=== PATIENT | male | born 2000 | race Caucasian/White ===

== ENCOUNTER 2023-06-26 12:47 | Inpatient (IN) | payer OTHER ==
[~2023-06-26] VITALS: Ht 167.6 cm; Wt 88.1 kg
--- NOTE | 2023-06-26 13:30 | NUR ---
PATIENT ARIVED IN STABLE CODITION FROM [facility]. PER EMS PATIENTS MOTHER COMING SOON. PATIENT IS AWAKE AND ALERT, VITAL SIGNS STABLE. PATIENT DENIES ANY PAIN OR NAUSEA AT THIS TIME. PATIENT WEIGHT TAKEN ON THE BED. WILL ASK HIS MOTHER WHEN SHE ARRIVES WHAT PATIENTS WEIGHT IS. CALL LIGHT MARIOLA BRAVO. PATIENT ORIENTED TO ROOM.
[2023-06-26 14:00] VITALS: BP 118/82; PULSE 78
[2023-06-26 16:34] LABS: BASO # 0.1 K/mm3 (0.0-0.2); BASO % 0.5 % (0.0-2.0); EOS # 0.1 K/mm3 (0.0-0.7); EOS % 0.8 % (0.0-4.0); GRAN # 6.5 K/mm3 (1.4-6.5); HEMATOCRIT 42.4 % (42.0-52.0); HEMOGLOBIN 14.3 g/dl (13.5-18.0); LYMPH # 3.2 K/mm3 (1.2-3.4); LYMPH % 30.3 % (20.0-51.0); MEAN CELL VOLUME 88 fl (80.0-100.0); MEAN CORPUSCULAR HEMOGLOBIN 30 pg (27-31); MEAN CORPUSCULAR HGB CONC 34 g/dl (33.0-37.0); MEAN PLATELET VOLUME 8.6 fl (7.4-10.4); MONO # 0.8 K/mm3 (0.1-0.6); MONO % 7.1 % (1.7-9.3); PLATELET COUNT 334 K/mm3 (130-400); RED BLOOD COUNT 4.83 M/mm3 (4.20-5.60); REDCELL DISTRIBUTION WIDTH-CV 13.4 % (11.5-14.5)
[2023-06-26 16:42] LABS: INR 1.2 (0.8-3.0); PROTHROMBIN TIME 12.8 SECONDS (9.7-12.8)
[2023-06-26 16:51] LABS: ALBUMIN 4.3 gm/dL (3.5-5.0); BILIRUBIN,TOTAL 0.6 mg/dL (0.2-1.2); CALCIUM 9.8 mg/dL (8.4-10.2); CREATININE, serum 0.91 mg/dL (0.72-1.25); POTASSIUM 3.6 mmol/L (3.5-4.5)
--- NOTE | 2023-06-26 17:00 | NUR ---
PATIENT DOWN IN SURGERY
--- NOTE | 2023-06-26 18:37 | NUR ---
PER DR HERRERA MAKE PATIENT NPO FOR SX AROIND NOON TOMORROW
[2023-06-26] MEDS ORDERED: CARNITOR100 MG/M1 PO (19:36)
[2023-06-26] MEDS ORDERED: SYNTHROID0.112 MG/T PO (19:36)
--- NOTE | 2023-06-26 19:44 | NUR ---
ATTEMPT TO CONTACT NIGHT BULK RECEIVER [facility] REGARDING RESUMING HOME MED CARNITINE SUPLEMENT. THIS RN SPOKE TO PHARMACIST DAISY VILLA STATE HE WILL TRY TO CONTACT NIGHT BULK RECEIVER.
[2023-06-26 20:00] VITALS: BP 119/67; PULSE 72; TEMP 97.8
--- NOTE | 2023-06-26 22:23 | NUR ---
PATIENT RETURNED FROM OR/PACU AT 1914 ACCOMPANIED BY REEL REPAIRER, BASHIR. PATIENT ALERT AND ORIENTED WITH FAMILY AT BEDSIDE. PATIENT HAS NO COMPLAINTS OF PAIN AT THIS TIME. VITAL SIGNS WNL. MEDICATIONS ADMINISTERED PER EMAR. CALL LIGHT WITHIN REACH.
--- NOTE | 2023-06-26 22:27 | NUR ---
RECEIVED REPORT FROM RADHA CHANEY RN AND PACU, RNBASHIR. PATIENT ALERT WITH FAMILY AT BEDSIDE. PATIENT HAS NO COMPLAINTS OF PAIN OR CONCERNS AT THIS TIME. CALL LIGHT WITHIN REACH.
[2023-06-27] VITALS (10 sets, daily range): BP systolic 121–128; BP diastolic 64–80; PULSE 75–82; TEMP 97.6–98.6
[2023-06-27 03:32] LABS: SQUAMOUS EPITHELIAL None Seen /hpf (0-10); URINE BACTERIA Rare /hpf (NONE SEEN); URINE RBC >50 /hpf (0-2)
[2023-06-27 03:34] LABS: COLLECTION METHOD CLEAN CATCH; URINE APPEARANCE Cloudy (CLEAR/HAZY); URINE COLOR Red (YELLOW)
[2023-06-27 03:35] LABS: URINE BLOOD 3+ (NEGATIVE); URINE GLUCOSE Negative (NEGATIVE); URINE KETONE 1+ (NEGATIVE); URINE NITRATE Positive (NEGATIVE); URINE PROTEIN(semi-quant) 3+ (NEGATIVE)
[2023-06-27 06:33] LABS: BASO % 0.2 % (0.0-2.0); GRAN % 85.1 % (42.2-75.2); HEMATOCRIT 39.6 % (42.0-52.0); HEMOGLOBIN 13.4 g/dl (13.5-18.0); LYMPH # 1.2 K/mm3 (1.2-3.4); MEAN CELL VOLUME 88 fl (80.0-100.0); MEAN CORPUSCULAR HEMOGLOBIN 30 pg (27-31); MEAN CORPUSCULAR HGB CONC 34 g/dl (33.0-37.0); MEAN PLATELET VOLUME 9.3 fl (7.4-10.4); MONO # 0.4 K/mm3 (0.1-0.6); MONO % 3.4 % (1.7-9.3); PLATELET COUNT 332 K/mm3 (130-400); RED BLOOD COUNT 4.49 M/mm3 (4.20-5.60); REDCELL DISTRIBUTION WIDTH-CV 13.2 % (11.5-14.5)
[2023-06-27 07:08] LABS: ALBUMIN 3.7 gm/dL (3.5-5.0); BILIRUBIN,TOTAL 0.4 mg/dL (0.2-1.2); CALCIUM 9.3 mg/dL (8.4-10.2); CREATININE, serum 0.82 mg/dL (0.72-1.25); POTASSIUM 3.3 mmol/L (3.5-4.5); TOTAL PROTEIN 6.4 gm/dL (6.2-8.1)
--- NOTE | 2023-06-27 10:00 | NUR ---
PT AWAKE IN BED UPON ENTERING, MOM AT BEDSIDE. PT A&OX4 WITH MOM ANSWERING MAJORITY QUESTIONS DURING ASSESSMENT. UROLOGY PROCEDURE DONE 06/26 WITH STENTS PLACED, ATTATCHED THREAD NOTED DURING ASSESSMENT. HEMATURNIA NOTED IN URINAL, PT CONCERNED AND THIS NURSE REASSURED PT THAT HEMATURIA IS EXPECTED AFTER CYSTO AND BIOPSIES TAKEN. PT STARTED ON POTASSIUM PROTOCOL, FLUIDS RUNNING PER ORDER AND DENIES PAIN OR NEEDS AT THIS TIME. BED IN LOWEST POSITION, CALL LIGHT IN REACH.
--- NOTE | 2023-06-27 12:08 | NUR ---
Initial visit: call or contact centre team leader stopped by room on rounds. Pt was resting and content. Pt has no needs right now. Material Worker will follow up as needed.
[2023-06-27] MEDS ORDERED: CYANOCOBAL1000 MCG/1 IM (13:37)
[2023-06-27] MEDS ORDERED: IMODIUM 2MG CAPS2 MG PO (13:38)
[2023-06-27] MEDS ORDERED: MASON NATURAL2000 IU PO (13:38)
[2023-06-27] MEDS ORDERED: NATURE'S BLEND100 M2 PO (13:39)
--- NOTE | 2023-06-27 15:39 | NUR ---
Personnel Counselor met with patient to discuss discharge planning. Patient lives in [place] with his parents, Michelle and Christopher. Patient sees Dr. Araiza for primary care and obtains medications from [facility] or [facility]. Specifically, patient advised he obtains his thyroid medication from [facility]. Patient advised he was a walker for when he needs it but is normally independent with ADLS. Patient plans to return home at time of discharge. SW contacted patient's mother, Michelle to follow up. Michelle advised she and her , Christopher are patient's Guardians and that she has paperwork with her. Patient also follows at [facility] as well as [facility]. Michelle confirmed that patient is normally independent with ADLS but when he has an "episode" he tends to needs to use a walker and require PT. Discharge Plan: Home
[2023-06-28] VITALS (13 sets, daily range): BP systolic 117–140; BP diastolic 67–78; PULSE 63–83; TEMP 97.9–98.9
--- NOTE | 2023-06-28 05:44 | NUR ---
06/27 2000 BLACK THREAD FROM STENT VISIBLE AND INTACT, PT. DENIES ANY PAIN AT THIS TIME, SAYS HE FEELS LIKE IT'S BEEN A LITTLE DIFFICULT FOR HIM TO URINATE AFTER THE PROCEDURE, AND THAT HE HAS HAD SOME BLOOD IN HIS URINE, I REASSURED HIM THAT A LITTLE BLOOD IS NOT UNUSAL AFTER THE PROCEDURE HE HAD, BUT TO LET US KNOW IF HE PASSED ANY BLOOD CLOTS OR HAD A LOT MORE BLOOD COME OUT THAN HE IS CURRENTLY PASSING, PT. STATED UNDERSTANDING, WILL CONTINUE TO MONITOR.
[2023-06-28 07:08] LABS: BASO # 0.1 K/mm3 (0.0-0.2); BASO % 0.5 % (0.0-2.0); EOS # 0.1 K/mm3 (0.0-0.7); EOS % 1.3 % (0.0-4.0); GRAN # 5.6 K/mm3 (1.4-6.5); GRAN % 51.1 % (42.2-75.2); HEMOGLOBIN 13.2 g/dl (13.5-18.0); LYMPH # 4.2 K/mm3 (1.2-3.4); LYMPH % 38.4 % (20.0-51.0); MEAN CELL VOLUME 89 fl (80.0-100.0); MEAN CORPUSCULAR HEMOGLOBIN 30 pg (27-31); MEAN CORPUSCULAR HGB CONC 34 g/dl (33.0-37.0); MEAN PLATELET VOLUME 9.2 fl (7.4-10.4); MONO # 0.9 K/mm3 (0.1-0.6); MONO % 8.4 % (1.7-9.3); PLATELET COUNT 347 K/mm3 (130-400); RED BLOOD COUNT 4.39 M/mm3 (4.20-5.60); REDCELL DISTRIBUTION WIDTH-CV 13.4 % (11.5-14.5)
[2023-06-28 07:14] LABS: CALCIUM 9.1 mg/dL (8.4-10.2); CREATININE, serum 0.83 mg/dL (0.72-1.25); POTASSIUM 3.3 mmol/L (3.5-4.5)
--- NOTE | 2023-06-28 08:50 | NUR ---
PT CALLED AND TRANSFERRED TO CHAIR. FLUIDS RUNNING PER ORDER. PT DENIES PAIN OR HAS ANY COMPLAINTS AT THIS TIME. STENT THREAD IN PLACE AND HEMATURIA IMPROVING. POTASSIUM PROTOCOL STARTED. CALL LIGHT IN REACH
[2023-06-28 08:54] LABS: MAGNESIUM 1.6 mg/dL (1.6-2.6); PHOSPHOROUS 4.2 mg/dL (2.3-4.7)
[2023-06-29] VITALS (10 sets, daily range): BP systolic 116–129; BP diastolic 68–87; PULSE 42–113; TEMP 97.8–98.7
--- NOTE | 2023-06-29 05:30 | NUR ---
ASSESSMENT COMPLETE FOR FIELD CONTACT TECHNICIAN. PT HAD SOME LOW HEART RATES WHICH WERE DOWN TO THE MID 30'S. ASYMPTOMATIC. VSS. HOSPITALIST NOTIFIED. WILL CONTINUE TO MONITOR. PT DENIED GENERAL PAIN, CHEEST PAIN, PALPITATIONS, SOB, N,V,D OR DIZZINESS. FALL PRECAUTIONS IN PLACE. BED ALARM ON. CALL LIGHT WITHIN REACH.
[2023-06-29 06:52] LABS: BASO # 0.1 K/mm3 (0.0-0.2); BASO % 0.8 % (0.0-2.0); EOS # 0.5 K/mm3 (0.0-0.7); GRAN # 4.7 K/mm3 (1.4-6.5); GRAN % 51.2 % (42.2-75.2); HEMATOCRIT 38.6 % (42.0-52.0); HEMOGLOBIN 13.3 g/dl (13.5-18.0); LYMPH # 3.1 K/mm3 (1.2-3.4); LYMPH % 34.2 % (20.0-51.0); MEAN CELL VOLUME 88 fl (80.0-100.0); MEAN CORPUSCULAR HEMOGLOBIN 30 pg (27-31); MEAN CORPUSCULAR HGB CONC 35 g/dl (33.0-37.0); MEAN PLATELET VOLUME 8.9 fl (7.4-10.4); MONO # 0.8 K/mm3 (0.1-0.6); MONO % 8.6 % (1.7-9.3); PLATELET COUNT 343 K/mm3 (130-400); REDCELL DISTRIBUTION WIDTH-CV 13.7 % (11.5-14.5)
[2023-06-29 07:09] LABS: CALCIUM 9.3 mg/dL (8.4-10.2); CREATININE, serum 0.77 mg/dL (0.72-1.25); POTASSIUM 3.4 mmol/L (3.5-4.5)
[2023-06-29 16:45] LABS: ALANINE AMINOTRANSFERASE 114 U/L (0-55); AST,SGOT 99 U/L (5-34); CREATINE KINASE 3878 U/L (30-200)
[2023-06-30] VITALS (7 sets, daily range): BP systolic 110–141; BP diastolic 53–67; PULSE 57–71; TEMP 97.6–98.4
--- NOTE | 2023-06-30 07:00 | NUR ---
PT RESTING SITTING UP IN THE CHAIR WAITING FOR BREAKFAST. PT IS AXOX3. PT HAS CALL LIGHT AND INSTRUCTED TO CALL WITH ALL NEEDS. 0900 PT HAS RASH FROM TELEMETRY PATCHES. TELE REMOVED FOR SHOWER. ASKED REGARDING AND STATES WE CAN DC TELE.
[2023-06-30 08:37] LABS: CALCIUM 9.7 mg/dL (8.4-10.2); CREATININE, serum 0.78 mg/dL (0.72-1.25); POTASSIUM 3.6 mmol/L (3.5-4.5)
[2023-06-30 08:56] LABS: ALANINE AMINOTRANSFERASE 99 U/L (0-55); AST,SGOT 84 U/L (5-34); CREATINE KINASE 2869 U/L (30-200)
[2023-07-01] VITALS (8 sets, daily range): BP systolic 114–145; BP diastolic 66–78; PULSE 61–113; TEMP 97.6–98.3
--- NOTE | 2023-07-01 02:09 | NUR ---
NURSING SHIFT ASSESSMENT COMPLETED. THE PATIENT WAS ALERT, ORIENTED AND APPROPRIATE. THE PATIENT DENIED PAIN OR DISCOMFORT. THE PLAN OF CARE AND EVENING MEDICATIONS REVIEWED. THE PATIENT HAD NO QUESTIONS OR CONCERNS. CALL LIGHT WITHIN REACH. BED IN LOW POSITION. BED ALARM ON. THE PATIENT DOES AMBULATE WITH A STEADY GAIT AND IS ABLE TO MANAGE THE IV POLE ON HIS OWN ON THE WAY TO THE BATHROOM.
[2023-07-01 07:17] LABS: CALCIUM 9.5 mg/dL (8.4-10.2); CREATININE, serum 0.88 mg/dL (0.72-1.25); POTASSIUM 3.6 mmol/L (3.5-4.5)
[2023-07-02] VITALS (8 sets, daily range): BP systolic 61–136; BP diastolic 60–74; PULSE 73–100; TEMP 97.6–98.5
--- NOTE | 2023-07-02 01:55 | NUR ---
NURSING SHIFT ASSESSMENT COMPLETED. THE PATIENT WAS ALERT AND ORIENTED. THE PATIENT REQUESTED A SHOWER AND WAS ASSISTED WITH A SHOWER AND A LINEN CHANGE WAS ALSO COMPLETED. THE PATIENT IS UP INDEPENDENTLY IN THE ROOM WITH A STEADY GAIT. THE PATIENT IS ABLE TO MANAGE HIS IV POLE WHILE AMBULATING TO THE BATHROOM. THE PATIENT DENIED PAIN OR DISCOMFORT. NO NEEDS AT THIS TIME. BED IN LOW POSITION, CALL LIGHT WITHIN REACH. EVENING MEDS AND CARE PLAN REVIEWED.
[2023-07-02 06:28] LABS: POTASSIUM 3.6 mmol/L (3.5-4.5)
--- NOTE | 2023-07-02 08:57 | NUR ---
Header Set Up Operator collaborated with physician during rounding to assess Patient for diacharge status. Physician assessed Patient to need constant fluids for 1 or more weeks and recommends referral to [facility].
--- NOTE | 2023-07-02 11:44 | NUR ---
Per pt mothers request, diet changed to house tray.
--- NOTE | 2023-07-02 11:49 | NUR ---
Notify Dr. Gabriel that pt mother at bedside. Also notify SW. Mother voices that pt is not transferring to another facility to continue tx. She was told by dietary that pt would go to [facility] for continued IV fluids. Mother states "this is a hospital, [facility] is a hospital, there's no reason to move him. He's staying here."
--- NOTE | 2023-07-02 13:36 | NUR ---
Pt mother calls this RN to pt room. Is concerned about reddened area to R forehead. Area is lamar-sized, red, blanchable. Pt denies pain with palpation. Tell mother that it does not look concerning but can notify Dr. Gabriel, request benadryl. Mother does not want any add'l meds, denies the need for further attention, just wanted to make staff aware. It is noted that pt chest continues to have deep red, irritated areas from prior telemetry patches. Pt has 2x areas of irritation to upper back. Fluids d/c per order. Pt encouraged to increase PO fluid intake.
--- NOTE | 2023-07-02 15:24 | NUR ---
Waterworks Pump Station Operator contacted [facility] to provide referral. [facility] states that they have no beds at this time. LORRIE sent referral to [facility]. LORRIE sent referral to [facility] [place]. Chris with [facility] clinically accepts and reports the need for insurance authorization. Waterworks Pump Station Operator collaborated with Physician to review Patient's discharge plan. Physician reports to have transitioned medication to oral and will reassess in the AM. Patient is to discharge home if levels are declining and if the levels increase, Patient will resume IV medication. LORRIE briefed Patient's Mother who states that if Patient needs sent outside of [place], [place] or [place], [place] she will take thhe Patient home "his levels will get worse, and I will bring him back to the ER to be admitted". LORRIE briefed Physician of the Mother's intent to discharge home if Patient is unable to have services in [place] or [place].
--- NOTE | 2023-07-02 16:07 | NUR ---
Call placed to [facility] as Dr Gabriel had requested a Lateral Transfer to [facility]. Per Tally, at [facility] it would be approx $1000 for tx if the insurance chose not to pay for transfer. Call placed to patients mother regarding the situation. She verbalized the inabiltiy to pay for ambulance bill and would like to tx patient by POV. Spoke with Dr. Gabriel; Dr. Gabriel is approving of patient being transported by POV with his mother with INT in place. Mother made aware. Transfer paper work completed and signed.
--- NOTE | 2023-07-02 16:15 | NUR ---
Pt transfers via private vehicle to [facility]. Pt is escorted from facility via WC. IV to RAC remains intact. Mother packs all pt belongings and transports them to [facility]. Report called to SHIVANI Trujillo.
== END 2023-07-02 16:15 | disposition short-term general hospital (02) | DRG 660 ==
LOC: MEDICAL 12:47
PROVIDERS: Family Medicine; Physician Assistant; Urology; ADMIT Internal Medicine
PROC: 0TC68ZZ Extirpation of Matter from Right Ureter, Via Natural or Artificial Opening Endoscopic (ICD-10-PCS; principal; 2023-06-26 16:30)
PROC: 0T768DZ Dilation of Right Ureter with Intraluminal Device, Via Natural or Artificial Opening Endoscopic (ICD-10-PCS; 2023-06-26 16:30)
PROC: 0TBB8ZZ Excision of Bladder, Via Natural or Artificial Opening Endoscopic (ICD-10-PCS; 2023-06-26 16:30)
DX: N13.0 Hydronephrosis with ureteropelvic junction obstruction (principal); M62.82 Rhabdomyolysis; Q93.59 Other deletions of part of a chromosome; N13.6 Pyonephrosis; D49.4 Neoplasm of unspecified behavior of bladder; E03.9 Hypothyroidism, unspecified; E87.6 Hypokalemia; R62.50 Unspecified lack of expected normal physiological development in childhood; R74.01 Elevation of levels of liver transaminase levels; D72.829 Elevated white blood cell count, unspecified; Z88.0 Allergy status to penicillin
CPT/HCPCS: C1769; C2617; G0378; G0379; J0690; J0696; J1100; J2405; J2704; J3010